=== PATIENT | female | born 1985 | race Caucasian/White ===

== ENCOUNTER 2018-04-27 09:38 | Observation (INO) | payer OTHER ==
--- NOTE | 2018-04-27 08:21 | PDGENHP ---
History and Physical History and Physical: Assessment and Plan: 1. Endometriosis Skylar most likely has inadequately treated endometriosis, though she could have some recurrent disease as well. We discussed all conservative and surgical options for endometriosis. I would recommend to continue physical therapy and acupuncture as finances allow, which will only help her tolerate chronic pain, and improve her painful intercourse. I would also recommend to continue her meditation, which will also help her chronic pain. She has previously tried gabapentin and takes it occasionally, but notes that she feels weird on it. She could consider Cymbalta for chronic pain, she is currently taking Wellbutrin for depression. I would defer adding any other depression medications to her primary care provider. Regarding the contraception, she could use the NuvaRing until surgery is to avoid menses and take it in a continuous fashion. It may make her more emotional, but it could provide benefit in her pain levels. We discussed that after excision surgery, she could try without contraception and see how she feels for a period of time. At the end of our discussion, Macey would like to move forward with surgical with Dr. Alvarado. We discussed that taking her uterus and/or ovaries would not cure her endometriosis, but could provide benefit to her painful menses. Since she is undecided, she can think about this in the meantime. She will see Dr. Alvarado for preoperative appointment, we discussed that he may do an ultrasound based on her physical exam today. She and her partner were given the opportunity to ask questions which were answered to their satisfaction. She was encouraged to call us before surgery if she has any other questions or concerns. She will be contacted by our department to move forward with surgery scheduling. 2. Pelvic pain in female Subjective: Patient ID: Macey is a 32 y.o. female who presents to [facility] for endometriosis consult. HPI Macey Ibarra presents for a preoperative visit. She is scheduled for a robotic excision of endometriosis. She would like to maintain the option of childbearing. As result she does not wish to undergo a hysterectomy. She apparently was diagnosed with pelvic congestion syndrome. She underwent occlusion of her left ovarian vein through interventional radiology at accessing from her right neck. They were unable to obtain access to the right ovarian vein. She states she feels slightly better. The risks, benefits, and alternatives were presented and informed consent was obtained. 40 minutes of this 40 minute appointment was spent counceling, reviewing the procedure in detail, and discussing the preoperative and postoperative instructions. Below is a copy of our prior visit note. Macey is a 32-year-old female with a history of 2 vaginal deliveries at full- term who found Dr. Alvarado via a online support group. She has a long and complex history of chronic pain, particularly in her pelvis and lower extremities. She is currently in physical therapy particularly focused on pelvic floor as well as acupuncture. She has tried multiple contraception treatments for her painful periods and endometriosis, most recently she had the bilateral placed early in 2017 but had it removed in September 2017 due to increased pelvic pain. Her menses started at age 12, and she remembers missing school due to the pain and also remembers having fevers and vomiting with her periods. Her periods are regular lasting for 7 days with days 2-4 being the heaviest, and she mostly wears pads for protection. She changes her pads every 2-3 hours. Tampons are too painful, and she has tried the cup which has also been painful. She has never noticed a difference with her menses on oral contraception or progesterone only treatments. Mostly with the hormones she experienced irregular bleeding and spotting with increased pain. She was first diagnosed with endometriosis at age 15 and was placed on Lupron which made her feel worse. She has had 2 pelvic laparoscopies, both with ablation. She is trying to get those records sent to us. She has daily pain which feels like a dull ache and soreness in her pelvis. She rates this a 5-7 out of 10 and baths and heat along with prescribed suppositories are helpful for this pain. She feels more intense pain that she associates similar to labor cramps that feels like strong sharp waves of pain with nausea that affects her bowels and this pain is worse with menses and ovulation. she also takes naproxen for pain. She has painful intercourse, but the physical therapy has helped this significantly. The pain that she experiences now is mostly a deeper pain with intercourse. She also has painful bowel movements that feels like a nerve spasms, and this is worse with her period. She also notices diarrhea with her periods. She has been told conflicting reports about whether or not to remove her reproductive organs, but she is unsure if she has completed having children. She also has a NuvaRing prescription at home, but is not sure if that is the best option for her at this point. She has had many discussions with her liquor tester regarding hormones and her pain. She is concerned about using estrogen. 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 She is here today with her spouse. They are currently using condoms for contraception. CURRENT MEDICATIONS: Current Outpatient Medications Medication Sig buPROPion (WELLBUTRIN XL) 300 mg 24 hr tablet clonazePAM (KLONOPIN) 0.5 mg tablet COMPOUNDED PRODUCT Product Name: Compounded vaginal suppositories Components/Strengths: Valium/Baclofen/Voltaren/gabapentin Directions: cyclobenzaprine (FLEXERIL) 10 mg tablet diclofenac sodium (PENNSAID) 20 mg/gram /actuation(2 %) sopm Apply 40 mg topically 2 times daily. DIINDOLYLMETHANE, BULK, MISC MAGNESIUM PO methocarbamol (ROBAXIN PO) MILK THISTLE PO OLANZapine (ZYPREXA) 2.5 mg tablet oxyCODONE (ROXICODONE) 10 mg Tab IR tablet VIT CALC,IRON,FOLIC ( VITAMIN PO) UNABLE TO FIND Med Name: Vitex (hormone support supplement) GABAPENTIN PO ketorolac (SPRIX) 15.75 mg/spray [place] for Severe Pain. 1 spray each nostril every 6-8 hours as needed. Max 4 doses per day, for up to 5 days. ( Patient not taking: Reported on 02/14/2018) No current facility-administered medications for this visit. ALLERGIES: Reglan [metoclopramide] I have reviewed, verified and personally updated the past medical history. Review of Systems Constitutional: Positive for fatigue. Respiratory: Negative. Cardiovascular: Negative. Gastrointestinal: Positive for abdominal pain and diarrhea. Genitourinary: Positive for dyspareunia, menstrual problem, pelvic pain and vaginal pain. Musculoskeletal: Positive for arthralgias and myalgias. Skin: Negative. Objective: Vital Signs: Visit Vitals BP 110/62 Pulse 96 Temp 37.2 C (98.9 F) (Temporal) Resp 16 Ht 1.613 m (5' 3.5") Wt 71.3 kg (157 lb 3.2 oz) SpO2 98% BMI 27.41 kg/m Physical Exam Constitutional: She is oriented to person, place, and time. She appears well- developed and well-nourished. Neck: Normal range of motion. Cardiovascular: Normal rate. Pulmonary/Chest: Effort normal. Abdominal: Soft. There is tenderness (generalized mild tenderness all quadrants) . Musculoskeletal: Normal range of motion. Neurological: She is alert and oriented to person, place, and time. Skin: Skin is warm and dry. Psychiatric: She has a normal mood and affect. Her behavior is normal. Pelvic: Normal external genitalia. Non-gaping introitus. Vaginal tissues well estrogenized. Tenderness entire vaginal vault, mostly towards the cervix. Tenderness bilateral uterosacral ligaments. Tenderness entire cervix, could not palpate posterior cervix due to pt pain with exam. Uterus retroverted, mobile. Adnexa appear less mobile on exam. Tenderness along entire posterior vaginal wall when palpating the rectum. Procedures DATA: I have reviewed patient's outside medical records. 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 TIME/COUNSELING: I personally spent a total of 60 minutes. Of that 60 minutes was counseling/ coordination of patient's care. See my note above for details. Alexsander Alvarado MD
[2018-04-27] MEDS ORDERED: ceFAZolin 2 GM/DEXTROSE 100 ML IV ONE (09:47)
[2018-04-27] MEDS ORDERED: GABAPENTIN 300 MG CAP PO ONE (09:47)
[2018-04-27] MEDS ORDERED: ACETAMINOPHEN 500 MG TAB PO ONE (09:47)
[2018-04-27] MEDS ORDERED: PHENAZOPYRIDINE HCL 200 MG TAB PO ONE (09:47)
[2018-04-27] MEDS ORDERED: LIDOCAINE 1% 2 ML INJ ID PRN (09:48)
[2018-04-27] MEDS ORDERED: LR 1,000 ML IV ONE (09:48)
--- NOTE | 2018-04-27 10:50 | PDHPUP ---
History & Physical Update H&P update statement: This history and physical update is based on an assessment of the patient which was completed after admission or registration (within 24 hours), but prior to the surgery/procedure. H&P update: H&P reviewed & patient examined, no change in patient's condition since H&P completed
[2018-04-27] MEDS ORDERED: MIDAZOLAM 2 MG/2 ML VIAL IVP ONE (12:49)
--- NOTE | 2018-04-27 12:49 | PDANEPAE ---
ANE History of Present Illness endometriosis here for excision ANE Past Medical History - Cardiovascular History Hx Hypertension: No Hx Arrhythmias: No Hx Chest Pain: No Hx Coronary Artery / Peripheral Vascular Disease: No Hx CHF / Valvular Disease: No Hx Palpitations: No - Pulmonary History Hx COPD: No Hx Asthma/Reactive Airway Disease: No Hx Recent Upper Respiratory Infection: No Hx Oxygen in Use at Home: No Hx Sleep Apnea: No Sleep Apnea Screening Result - Last Documented: Negative - Neurologic History Hx Cerebrovascular Accident: No Hx Seizures: No Hx Dementia: No Neurologic History Comment: seizure 2015 medication triggered - Endocrine History Hx Diabetes: No - Renal History Hx Renal Disorders: No - Liver History Hx Hepatic Disorders: No - Neurological & Psychiatric Hx Hx Neurological and Psychiatric Disorders: Yes Neurological / Psychiatric History Comment: chloe depression,anxiety - Cancer History Hx Cancer: No - Congenital Disorder History Hx Congenital Disorders: No - GI History Hx Gastrointestinal Disorders: Yes Gastrointestinal History Comment: IBS mixed diarrhea - Other Health History Other Health History: eczma. endometriosis - Chronic Pain History Chronic Pain: Yes (pelvic, lower back) - Surgical History Prior Surgeries: lap ablation 2013. cyst drainage ANE Review of Systems Review of Systems: - Exercise capacity METS (RN): 6 METS ANE Patient History - Allergies Allergies/Adverse Reactions: metoclopramide [From Reglan] Allergy (Verified 04/22/18 15:39) Other-Enter Comments - Home Medications Home Medications: Clonazepam 04/22/18 [Last Taken 04/26/18 21:00] Colace 04/22/18 [Last Taken Unknown] Flexeril 10 MG (*) 04/22/18 [Last Taken 04/26/18 19:00] Gabapentin Cream 04/22/18 [Last Taken 04/06/18] Magnesium 04/22/18 [Last Taken 04/26/18 21:00] Milk Thistle 04/22/18 [Last Taken 04/17/18] Naproxen Sodium 04/22/18 [Last Taken 04/17/18] Oxycodone HCl 04/22/18 [Last Taken 04/26/18 19:00] Pre- Vitamin 04/22/18 [Last Taken 04/22/18] Robaxin 500 mg (*) 04/22/18 [Last Taken 04/24/18] Vaginal Suppos 04/22/18 [Last Taken 04/26/18 21:00] Wellbutrin Xl 04/22/18 [Last Taken 04/27/18 07:00] Zyprexa 04/22/18 [Last Taken 04/26/18 21:00] - NPO status NPO Status: no food or drink >8 hours NPO Since - Liquids (Date): 04/27/18 NPO Since - Liquids (Time): 07:55 NPO Since - Solids (Date): 04/26/18 NPO Since - Solids (Time): 22:00 - Anes Hx Anes Hx: no prior problems - Smoking Hx Smoking Status: Never smoked - Alcohol Use Alcohol Use: Rarely - Family Anes Hx Family Anes Hx: none Family Hx Anesthesia Complications: none ANE Labs/Vital Signs - Vital Signs Blood Pressure: 118/64 Heart Rate: 88 Respiratory Rate: 11 O2 Sat (%): 94 Height: 162.56 cm Weight: 54.431 kg ANE Physical Exam - Airway Neck exam: FROM Mallampati Score: Class 2 Mouth exam: normal dental/mouth exam - Pulmonary Pulmonary: no respiratory distress, clear to auscultation - Cardiovascular Cardiovascular: regular rate and rhythym, no murmur, rub, or gallop - ASA Status ASA Status: II ANE Anesthesia Plan Anesthesia Plan: general endotracheal anesthesia
[2018-04-27] MEDS ORDERED: LIDOCAINE 2% 100 MG/5 ML SYR ONE (13:08)
[2018-04-27] MEDS ORDERED: fentaNYL 100 MCG/2 ML INJ ONE ×3 (13:08→15:04)
[2018-04-27] MEDS ORDERED: PROPOFOL 200 MG/20 ML VIAL ONE (13:08)
[2018-04-27] MEDS ORDERED: ROCURONIUM 50 MG/5 ML VIAL ONE ×2 (13:08→13:40)
[2018-04-27] MEDS ORDERED: BUPIVACAINE/EPI 0.5% 30 ML SDV ONE (13:09)
--- NOTE | 2018-04-27 14:54 | POSTOPPROG ---
Post Op Note Date of Operation: 04/27/18 Surgeon: Alexsander Alvarado [employer] Furnace Operator: Jess Anderson Anesthesia: GET(General Endotracheal) Pre-op Diagnosis: Edometriosis Post-op Diagnosis: Jamie Procedure: Robotic exision of endo, bilat ureterolysis and ovaria pexy Findings: endo Inf/Abcess present in the surg proc area at time of surgery?: No EBL: Minimal Complications: one
[2018-04-27] MEDS ORDERED: ONDANSETRON DISINTEGRATING 4 MG TAB PO PRN (14:55)
[2018-04-27] MEDS ORDERED: HYDROmorphONE/DILAUDID 1 MG/ML INJ IVP PRN (14:55)
[2018-04-27] MEDS ORDERED: ONDANSETRON 4 MG/2 ML VIAL IVP PRN ×2 (14:55→15:00)
[2018-04-27] MEDS ORDERED: ACETAMINOPHEN 500 MG TAB PO PRN (15:00)
[2018-04-27] MEDS ORDERED: NALOXONE HCL 0.4 MG/ML INJ IVP PRN (15:00)
[2018-04-27] MEDS ORDERED: LR 1,000 ML IV SCH (15:00)
[2018-04-27] MEDS ORDERED: PROMETHAZINE HCL 25 MG/ML INJ IVP PRN (15:00)
[2018-04-27] MEDS ORDERED: HYDROCODONE/APAP 5/325 TAB PO PRN (15:00)
[2018-04-27] MEDS ORDERED: DIAZEPAM 5 MG/ML 1 ML SYR IVP PRN (15:00)
--- NOTE | 2018-04-27 15:02 | POSTANESTH ---
Post Anesthetic Evaluation Cardiovascular Status: Normal, Stable, Similar to Pre-Op Cond Respiratory Status: Normal, Stable, Similar to Pre-op Cond. Level of Consciousness/Mental Status: Can Participate in Eval, Alert and Oriented Pain Control: Adequate, Prn Tx Ordered Nausea/Vomiting Control: Adequate, Prn Tx Ordered Complications Possibly Related to Anesthesia: None Noted
[2018-04-27] MEDS ORDERED: HYDROmorphONE/DILAUDID 2 MG/ML INJ ONE (15:04)
[2018-04-27] MEDS: fentaNYL 100 MCG/2 ML INJ IVP PRN ×2 (15:05→15:08)
[2018-04-27] MEDS: HYDROmorphONE/DILAUDID 2 MG/ML INJ IVP PRN ×2 (15:09→15:22)
[2018-04-27] MEDS ORDERED: oxyCODONE IR 5 MG TAB ONE ×2 (15:29→16:03)
[2018-04-27] MEDS: oxyCODONE IR 5 MG TAB PO PRN ×2 (15:32→16:05)
[2018-04-27] MEDS: GABAPENTIN 300 MG CAP PO SCH ×2 (17:38→21:12)
[2018-04-27] MEDS: PROMETHAZINE HCL 25 MG/ML INJ IVP PRN ×2 (17:39→23:57)
--- NOTE | 2018-04-27 17:53 | GOP ---
DATE OF OPERATION: 04/27/2018 SURGEON: Alexsander Alvarado MD CINDER PIT WORKER: Jess Anderson CFA. ANESTHESIA: General. PREOPERATIVE DIAGNOSIS: 1. Endometriosis. 2. Dysmenorrhea. 3. Midcycle pain. POSTOPERATIVE DIAGNOSIS: 1. Endometriosis. 2. Dysmenorrhea. 3. Midcycle pain. PROCEDURE PERFORMED: 1. Robotic-assisted laparoscopic excision of endometriosis in the anterior and posterior cul-de-sac, bilateral pelvic side [place]. 2. Bilateral ureterolysis. 3. Excision of rectal lesion. 4. Bilateral ovariopexy. FINDINGS: SPECIMENS: 1. Pelvic peritoneum with endometriosis. 1. Rectal lesion. 2. ESTIMATED BLOOD LOSS: Scant. DESCRIPTION OF PROCEDURE: The patient was taken the operating room where she was identified. Genera l anesthesia was administered and found to be adequate. She was placed in the lithotomy position, pr epared and draped in normal sterile fashion. A [place]ka tenaculum was placed in the uterus for manipula tion. A Villa catheter was then placed. A 1 cm infraumbilical incision was made with a scalpel. The Veress needle with the CO2 gas flowing w as advanced into the peritoneal cavity. The abdomen was then insufflated with carbon dioxide gas. T he 12 mm trocar, followed by the laparoscope were then inserted. The upper abdomen was unremarkable. There was no endometriosis seen on either diaphragm or upper abdominal bowel. Two lateral ports we re placed in the right and 1 on the left under direct visualization. She then was placed in [place] position and the da Melania robot docked on the left side. The instruments were then brought int o the abdominal cavity under direct visualization. The patient had multiple areas of endometriosis in the anterior and posterior cul-de-sac overlying th e distal rectum, as well as the pelvic sidewalls, including overlying both ureters. She had several lesions on the ovaries. The anterior cul-de-sac peritoneum was excised. The ovaries were adherent t o the pelvic sidewalls. They were freed up. The endometriosis on each ovary was treated. A bilater al ovariopexy was performed by attaching each ovary to the ipsilateral round ligaments near the inter nal inguinal ring. The lesion on the distal rectum was excised. This extended approximately 1/3 the depth of the muscularis. The entire posterior cul-de-sac peritoneum from the distal rectum up to th e and including the cervix, and laterally to the uterosacral ligaments was then completely excised. A bilateral ureterolysis was required to excise the endometriosis overlying both ureters. The perito neum of the pelvic brims were incised. The ureters were gently dissected free and lateralized off th e overlying peritoneum and endometriosis from the pelvic brim all the way down to the uterine arterie s. Once was accomplished, the entire pelvic supple peritoneum was completely excised. The serosa wi th endometriosis on the cervix was then completely excised. The pelvis was irrigated with sterile saline and hemostasis was present. The robot was then undocked . The fascia was closed with 0 Vicryl, skin with 4-0 Monocryl. Anesthesia was reversed. The patien t taken the PACU awake, in stable condition. COMPLICATIONS: None. DISPOSITION: Patient stable to PACU. /[id number]/MODL
[2018-04-27] MEDS: OXYCODONE/APAP 5/325 TAB PO PRN (20:01)
[2018-04-27] MEDS: DOCUSATE SODIUM 100 MG CAP PO SCH (20:01)
[2018-04-27] MEDS: SIMETHICONE 80 MG TAB CHEW PO SCH ×2 (20:01→20:38)
[2018-04-27] MEDS: KETOROLAC 30 MG/1 ML SDV IVP SCH ×3 (20:02→23:56)
[2018-04-27] MEDS ORDERED: clonazePAM 1 MG TAB PO SCH (22:30)
[2018-04-27] MEDS ORDERED: OLANZapine 2.5 MG TAB PO SCH (22:30)
[2018-04-27] MEDS: HYDROmorphONE/DILAUDID 2 MG TAB PO PRN (22:35)
[2018-04-28] MEDS: HYDROmorphONE/DILAUDID 2 MG TAB PO PRN ×3 (03:34→10:07)
[2018-04-28] MEDS: KETOROLAC 30 MG/1 ML SDV IVP SCH (06:40)
[2018-04-28 08:46] VITALS: BP 121/70
[2018-04-28] MEDS: DOCUSATE SODIUM 100 MG CAP PO SCH (10:02)
[2018-04-28] MEDS: GABAPENTIN 300 MG CAP PO SCH (10:03)
[2018-04-28] MEDS: OXYCODONE/APAP 5/325 TAB PO PRN (10:03)
[2018-04-28] MEDS: SIMETHICONE 80 MG TAB CHEW PO SCH (10:09)
[2018-04-28] MEDS: PROMETHAZINE HCL 25 MG/ML INJ IVP PRN (10:13)
== END 2018-04-28 12:30 | disposition home or self-care (01) ==
LOC: FSGY 09:38 → F3E 14:55 → FOB 16:52
PROVIDERS: ADMIT Obstetrics & Gynecology; ATTEND Obstetrics & Gynecology
DX: N80.3 Endometriosis of pelvic peritoneum (principal); N94.6 Dysmenorrhea, unspecified; N94.10 Unspecified dyspareunia; R10.2 Pelvic and perineal pain; F32.9 Major depressive disorder, single episode, unspecified
CPT/HCPCS: 58662; 58679; G0378; J0690; J1170; J1885; J2001; J2250; J2550; J2704; J3010